=== PATIENT | female | born 1970 | race Caucasian/White ===

== ENCOUNTER 2016-08-29 20:26 | Emergency (ER) | payer BC ==
[2016-08-29] MEDS ORDERED: LORazepam 2 MG/ML MDV IM ONE (20:49)
[2016-08-29] MEDS ORDERED: hydrOXYzine HCl 50 MG/ML SDV IM ONE (20:50)
[2016-08-29 21:19] VITALS: BP 159/89
--- NOTE | 2016-08-30 01:15 | ER ---
DATE SEEN: 08/29/2016 TIME SEEN: 2030 hours. REASON FOR VISIT: Anxiety. HISTORY OF PRESENT ILLNESS: A 46-year-old female, originally from [place], she has just moved into town. She is out of clonazepam that she has taken for 23 years and has been out for the last 3 days. She feels anxious, jittery, nervous, and unable to sleep for those 3 days. PAST MEDICAL HISTORY: ADHD and anxiety disorder. CURRENT MEDICATIONS: 1. Cymbalta. 2. Nexium. 3. Methylphenidate. ALLERGIES: None. SOCIAL HISTORY: Smoker. PHYSICAL EXAMINATION: GENERAL: Nontoxic. VITAL SIGNS: Blood pressure 161/106, temperature 98.1, oxygenation 97% on room air. ENT: Negative. NECK: Supple. CHEST: Clear. HEART: Regular rhythm. MENTAL STATUS: Very nervous, anxious, jittery, and restless. IMPRESSION: Anxiety attack. PLAN: Lorazepam 1 mg IM and Vistaril 50 mg IM. I recommend that she establish a personal physician in [facility] for prescriptions. I declined to refill any of her prescriptions today. /[id number] DEISY/LEENAL
== END 2016-08-29 21:10 | disposition home or self-care (01) ==
LOC: FB.ED 20:26
DX: F41.9 Anxiety disorder, unspecified (principal); Z87.891 Personal history of nicotine dependence
CPT/HCPCS: 96372; 99284; J2060; J3410

== ENCOUNTER 2025-03-20 15:53 | Emergency (ER) | payer BC ==
[2025-03-20 16:21] VITALS: BP 155/96; PULSE 116
[2025-03-20] MEDS: Ondansetron 8 MG Tab.DIS PO ONE (16:46)
== END 2025-03-20 16:55 | disposition home or self-care (01) ==
LOC: FB.ED 15:53
DX: F41.9 Anxiety disorder, unspecified (principal); M62.838 Other muscle spasm; R11.0 Nausea; I10 Essential (primary) hypertension; Z76.0 Encounter for issue of repeat prescription; Z79.899 Other long term (current) drug therapy
CPT/HCPCS: 99283; A9270

== ENCOUNTER 2025-04-06 13:04 | Emergency (ER) | payer BC ==
[2025-04-06] MEDS: hydrOXYzine HCl 50 MG/ML SDV IM ONE (14:22)
[2025-04-06 15:26] VITALS: BP 141/102; PULSE 102
== END 2025-04-06 15:25 | disposition home or self-care (01) ==
LOC: FB.ED 13:04
DX: F41.9 Anxiety disorder, unspecified (principal); I10 Essential (primary) hypertension; Z79.899 Other long term (current) drug therapy
CPT/HCPCS: 96372; 99283; J3410